=== PATIENT | male | born 1955 | race Caucasian/White ===

== ENCOUNTER 2021-08-17 05:39 | Day surgery (SDC) | payer MEDICARE, OTHER ==
[~2021-08-17] VITALS: Ht 167.6 cm; Wt 65.9 kg
[2021-08-17] MEDS ORDERED: BENZOCAINE 20% 50 MCG/SPRAY 57 GM TP ONE (05:40)
[2021-08-17] MEDS ORDERED: LIDOCAINE 4% 50 ML SOLUTION TP ONE (05:40)
[2021-08-17] MEDS ORDERED: LIDOCAINE 2% 11 ML JELLY TP ONE (05:40)
[2021-08-17] MEDS ORDERED: SODIUM CHLORIDE 0.9% 1,000 ML IV ONE (06:30)
[2021-08-17] MEDS ORDERED: SODIUM CHLORIDE 0.9% 1,000 ML ONE (06:47)
[2021-08-17 06:54] LABS: COVID AG,FIA SOURCE NASOPHARYNGEAL
[2021-08-17] MEDS ORDERED: ATOR20TA65 PO (07:02)
[2021-08-17] MEDS ORDERED: PRAZ2 PO (07:02)
[2021-08-17] MEDS ORDERED: FLUO40CA PO (07:02)
[2021-08-17] MEDS ORDERED: FINA5TAB41 PO (07:02)
[2021-08-17] MEDS ORDERED: ASPI-1444 PO (07:02)
[2021-08-17] MEDS ORDERED: HYDR12.54 PO (07:02)
[2021-08-17] MEDS ORDERED: FentaNYL CITRATE PF 100 MCG/2 ML VIAL ONE (07:49)
[2021-08-17] MEDS ORDERED: MIDAZOLAM HCL 5 MG/ML VIAL ONE (07:50)
[2021-08-17] MEDS ORDERED: SODIUM CHLORIDE 0.9% 10 ML ONE (07:53)
[2021-08-17] MEDS ORDERED: MethylPREDNISolone SOD SUCC 125 MG/2 ML VIAL ONE (08:53)
[2021-08-17] MEDS ORDERED: MethylPREDNISolone SOD SUCC 125 MG/2 ML VIAL IVP ONE (09:00)
[2021-08-17] MEDS ORDERED: OXYGEN THERAPY IH SCH (20:00)
== END 2021-08-17 11:35 | disposition home or self-care (01) ==
LOC: SURGERY 05:39
PROVIDERS: ATTEND Internal Medicine Critical Care Medicine
DX: J38.4 Edema of larynx (principal); B37.0 Candidal stomatitis; J43.9 Emphysema, unspecified; F32.9 Major depressive disorder, single episode, unspecified; G47.00 Insomnia, unspecified; E78.00 Pure hypercholesterolemia, unspecified; I10 Essential (primary) hypertension; F17.210 Nicotine dependence, cigarettes, uncomplicated; Z79.899 Other long term (current) drug therapy; Z79.82 Long term (current) use of aspirin; Z98.890 Other specified postprocedural states
CPT/HCPCS: 31623; 88112; 87206; 87101; 87220; 87070; 87015; 88305; 88312; 31624; 71045; 71250; 87426; J3010; J2930; J2250; Q9967; J7030; C9803; Z7610